=== PATIENT | female | born 1955 | race Caucasian/White ===

== ENCOUNTER → 2019-07-20 | Outpatient (REF) | LOC: M LAB LCGH 14:42 | PROVIDERS: ATTEND Surgery | DX: Z12.11 Encounter for screening for malignant neoplasm of colon (principal); K62.1 Rectal polyp ==

== ENCOUNTER → 2021-06-29 | Outpatient (CLI) | payer MEDICARE, BC ==
--- NOTE | 2021-07-03 20:10 | SLEEPCENT ---
DATE: 06/29/2021 CPAP TITRATION ORDERED BY: ANGELA Comer Nocturnal polysomnography was performed for the titration of pressure therapy in this patient with a clinical diagnosis of obstructive sleep apnea syndrome confirmed by home testing revealing respiratory event index of 11.4. For testing a ResMed F20 full face mask of medium size was used, 4 cm of water pressure were applied to the circuit, and the lights were extinguished. Seven hours and 58 minutes of data were reviewed. There were 384.5 minutes of sleep identified. Sleep latency was normal at 10 minutes. REM latency was normal at 80 minutes. Sleep architecture was good with three REM cycles. Overall sleep efficiency was 81.8%. The electrocardiogram showed what appeared to be an underlying sinus rhythm with frequent ectopy. Average heart rate was 60 beats per minute. EEG showed normal waveforms for wake and sleep. Respiratory events were fully palliated with CPAP at a pressure of +10. There was some minor limb activity noted and remaining measures of sleep physiology were normal. IMPRESSION: Obstructive sleep apnea syndrome (G47.33). RECOMMENDATION: Nightly use of pressure therapy 10 cm of water. cc: ALEKSANDAR BELL MD
== END ==
LOC: M SLEEP 19:44
PROVIDERS: ATTEND Physician Assistant
DX: G47.33 Obstructive sleep apnea (adult) (pediatric) (principal)

== ENCOUNTER → 2025-04-28 | Outpatient (CLI) | payer MEDICARE | LOC: M CARPUL 10:40 | PROVIDERS: ATTEND Registered Nurse | DX: I77.810 Thoracic aortic ectasia (principal); I34.0 Nonrheumatic mitral (valve) insufficiency ==